=== PATIENT | female | born 1980 ===

== ENCOUNTER 2017-05-27 19:58 | Emergency (ER) | payer BC ==
[2017-05-27 20:48] VITALS: BMI 42.3
--- NOTE | 2017-05-27 21:04 | ED PDOC ---
Arrival/HPI - General Chief Complaint: Female Genitourinary Time Seen by Provider: 05/27/17 20:14 Historian: Patient - History of Present Illness Narrative History of Present Illness (Text): 05/27/17 21:02 36 y/o female, nkda, c/o private spot itching x 2 days. Pt. stated that she has no itching inside the vaginal canal, no vaginal bleeding or discharge, no headache or night sweat, no palpitation, no numbness or tingling, no urinary symptoms, no low back pain, no other medical or psychological complaints. Past Medical History - Provider Review Nursing Documentation Reviewed: Yes - Infectious Disease Hx of Infectious Diseases: None - Psychiatric Hx Substance Use: No - Surgical History Hx Dilation and Curettage: Yes Other/Comment: sinus sx - Anesthesia Hx Anesthesia: Yes Hx Anesthesia Reactions: No Hx Malignant Hyperthermia: No Family/Social History - Physician Review Nursing Documentation Reviewed: Yes Family/Social History: Unknown Family HX Smoking Status: Never Smoked Hx Alcohol Use: No Hx Substance Use: No Allergies/Home Meds Allergies/Adverse Reactions: Allergies shrimp Allergy (Verified 05/27/17 20:48) RASH Review of Systems - Review of Systems Constitutional: absent: Fatigue, Fevers Eyes: absent: Vision Changes ENT: absent: Hearing Changes, Rhinorrhea Respiratory: absent: SOB, Cough Cardiovascular: absent: Chest Pain Gastrointestinal: absent: Abdominal Pain, Diarrhea, Nausea, Vomiting Skin: Rash, Pruritis. absent: Skin Lesions, Laceration, Abscess, Ulcer, Cellulitis Neurological: absent: Headache, Dizziness Physical Exam - Systems Exam Head: Present: Atraumatic, Normocephalic Pupils: Present: PERRL Extroacular Muscles: Present: EOMI Conjunctiva: Present: Normal Mouth: Present: Moist Mucous Membranes Neck: Present: Normal Range of Motion Respiratory/Chest: Present: Clear to Auscultation, Good Air Exchange. No: Respiratory Distress, Accessory Muscle Use Cardiovascular: Present: Regular Rate and Rhythm, Normal S1, S2. No: Murmurs Abdomen: Present: Normal Bowel Sounds. 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 There is lichenification and flaky skin noted on the bilateral jock region). No: Vaginal Bleeding, Vaginal Lesions, Adenexal Tenderness, Adenexal Mass, Cervical Motion Tendernes, Odor Back: Present: Normal Inspection Upper Extremity: Present: Normal Inspection. No: Cyanosis, Edema Lower Extremity: Present: Normal Inspection. No: Edema Neurological: Present: GCS=15, Speech Normal, Motor Func Grossly Intact, Memory Normal Skin: Present: Warm, Dry, Normal Color. 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 Disposition/Present on Arrival - Present on Arrival Any Indicators Present on Arrival: No History of DVT/PE: No History of Uncontrolled Diabetes: No Urinary Catheter: No History of Decub. Ulcer: No History Surgical Site Infection Following: None - Disposition Have Diagnosis and Disposition been Completed?: Yes Diagnosis: Vaginal yeast infection, Tinea cruris Disposition: HOME/ ROUTINE Disposition Time: 21:04 Patient Plan: Discharge Condition: GOOD Additional Instructions: -Discharge home with lotrisone, keep the private part dry and clean, wear loose underwear, follow up with your own pmd and main entree cook and cashier within 2 days, return to the ER for any new or worsening signs or symptoms. Prescriptions: Clotrimazole/Betamethasone [Lotrisone] 1 appl EXT BID #30 g Referrals: Laura Haines MD [Staff Provider] - Follow up with primary Forms: [employer] (Polish)
[2017-05-27 21:48] VITALS: BP 133/83; PULSE 90; RESP 18; TEMP 98.5; O2SAT 98
== END 2017-05-27 22:03 | disposition home or self-care (01) ==
LOC: ED 19:58
DX: B37.3 Candidiasis of vulva and vagina (principal); B35.6 Tinea cruris